=== PATIENT | female | born 1945 | race Caucasian/White ===

== ENCOUNTER → 2017-03-27 | Outpatient (CLI) | payer MEDICARE, BC ==
[2017-03-27 15:29] LABS: ALBUMIN 3.5 gm/dL (3.5-5.0); ANION GAP 10.8 (10.0-19.0); CALCIUM 10.5 mg/dL (8.5-10.5); CREATININE 1.6 mg/dL (0.5-1.1); PHOSPHORUS 2.1 mg/dL (2.5-4.9)
[2017-03-27 15:30] LABS: POTASSIUM 4.8 mMol/L (3.7-5.1)
== END | disposition disaster alternative care site (69) ==
LOC: LCNC 15:17
PROVIDERS: Internal Medicine Interventional Cardiology
DX: Z79.01 Long term (current) use of anticoagulants (principal)

== ENCOUNTER → 2017-04-10 | Outpatient (CLI) | payer MEDICARE, BC | LOC: LKCL 16:43 | DX: E83.52 Hypercalcemia (principal); N18.3 Chronic kidney disease, stage 3 (moderate); R53.1 Weakness ==

== ENCOUNTER 2017-04-22 02:27 | Emergency (ER) | payer MEDICARE, BC ==
--- NOTE | ~2017-04-22 | ER ---
PATIENT'S NAME: PRATIK GIFFORD [facility] AGE: 71 Y [address] ROOM: [place], [place] [address] LOCATION: [facility] ADMIT DATE: 04/22/2017 ER/Outpatient Report DISCHARGE DATE: 04/22/2017 FAMILY PHYSICIAN: Abhilash Saucedo MD ATTENDING PHYSICIAN: Russell Vazquez Admission date and time documented in the medical record. I saw the patient at 0240 hours. CHIEF COMPLAINT: Fall out of bed with right shoulder pain. HISTORY OF PRESENT ILLNESS: The patient is a 71-year-old female, who just prior to admission in the emergency room fell out of bed injuring her right shoulder. Brought to the emergency room by paramedics via ambulance for evaluation. On arrival, the patient was awake, alert, responsive. Complains of right shoulder pain. Denies hitting her head or having head pain. No neck or spine pain. No chest pain or shortness of breath. No abdominal pain, nausea, vomiting, or incontinence of stool or urine. No other joint or muscle swelling, redness, or pain other than the right shoulder. No skin eruptions or rash. No history of psych issues, endocrine problems, or neuro changes. HOME MEDICATIONS: See attached medication list. ALLERGIES: NONE. SOCIAL HISTORY: Nonsmoker. Occasional intake of alcohol. SIGNIFICANT PAST MEDICAL HISTORY: Atherosclerotic ischemic heart disease with coronary artery disease, hypertension, benign ovarian fibroma, endometriosis, dyslipidemia, obesity, nonischemic cardiomyopathy, chronic anticoagulation with Plavix, obstructive sleep apnea. OPERATIONS: Bladder suspension, hysterectomy, cholecystectomy, tonsillectomy, exploratory laparotomy with resection of pelvic mass, appendectomy, cardiac catheterization, AICD placement. REVIEW OF SYSTEMS: All systems reviewed by me are negative with the exception of those discussed PATIENT'S NAME: PRATIK GIFFORD [facility] AGE: 71 Y [address] ROOM: [place], [place] [address] LOCATION: [facility] ADMIT DATE: 04/22/2017 ER/Outpatient Report DISCHARGE DATE: 04/22/2017 FAMILY PHYSICIAN: Abhilash Saucedo MD ATTENDING PHYSICIAN: Russell Vazquez in the history of the present illness. PHYSICAL EXAMINATION: VITAL SIGNS: Temperature 98.7 tympanic, pulse 60, respirations 18, blood pressure 176/73, O2 sat on room air is 99%. HEAD: Normocephalic. EYES, EARS, NOSE, THROAT: Clear. NECK: No nuchal rigidity. No thyromegaly or cervical adenopathy. No tenderness. SPINE: Nontender. No deformity. LUNGS: Clear. Good air flow. No rales, rhonchi, or wheezes. HEART: Regular. Pulses are palpable. ABDOMEN: Soft, nondistended, nontender. Good bowel tones. No organomegaly or abnormal mass palpable. PELVIS: Stable, nontender. EXTREMITIES: The patient has deformity of the right shoulder with tenderness. No other joint abnormalities. NEUROVASCULAR: Intact. Pulse intact. Capillary refill was intact. SKIN: Clear. LABORATORY DATA AND X-RAYS: X-ray of the right shoulder shows a dislocation of the right shoulder. We will review x-ray with the radiologist. EMERGENCY DEPARTMENT COURSE: Did start an IV. Gave the patient 25 mcg of fentanyl IV in the emergency room for pain. We did call Anesthesia to do conscious sedation with propofol for closed reduction of the right shoulder dislocation. Did have the patient sign an op permit for closed reduction of right dislocated shoulder. We did start the patient on some fluids. Gave her propofol for conscious sedation. Reduced the right shoulder dislocation. The patient did have some decrease in her O2 sats. We did bag the patient for a brief period of time. The patient woke up and did fine. Repeat x-ray following closed reduction showed successful reduction of right shoulder dislocation. We will review all plain films with the radiologist. IMPRESSION: Fall out of bed with dislocated right shoulder. Closed reduction under conscious sedation using propofol was performed successfully in reducing the right shoulder dislocation. PLAN: The patient was placed in a right shoulder immobilizer. Discharged from the emergency room home. Continue present home medications and care. Ice to shoulder intermittently if needed. Follow up with personal physician or PATIENT'S NAME: PRATIK GIFFORD [facility] AGE: 71 Y [address] ROOM: [place], [place] [address] LOCATION: [facility] ADMIT DATE: 04/22/2017 ER/Outpatient Report DISCHARGE DATE: 04/22/2017 FAMILY PHYSICIAN: Abhilash Saucedo MD ATTENDING PHYSICIAN: Russell Vazquez orthopedic surgeon in 7-10 days for followup exam. Discussion ensued with the patient and her regarding my findings and recommendations, they understand. MD FATMATA ROSALES/sylvester /[id number] d: 04/22/17 0430 t: 05/02/17 1817, OUTPATIENT REPORT
== END 2017-04-22 04:10 | disposition disaster alternative care site (69) ==
LOC: GACC 02:27
PROC: 0RSJXZZ Reposition Right Shoulder Joint, External Approach (ICD-10-PCS; principal; 2017-04-22)
DX: S43.034A Inferior dislocation of right humerus, initial encounter (principal); I25.10 Atherosclerotic heart disease of native coronary artery without angina pectoris; I10 Essential (primary) hypertension; E78.5 Hyperlipidemia, unspecified; E66.9 Obesity, unspecified; R79.1 Abnormal coagulation profile; G47.33 Obstructive sleep apnea (adult) (pediatric); Z90.710 Acquired absence of both cervix and uterus; Z90.49 Acquired absence of other specified parts of digestive tract; Z90.89 Acquired absence of other organs; Z95.828 Presence of other vascular implants and grafts; Z95.810 Presence of automatic (implantable) cardiac defibrillator; W06.XXXA Fall from bed, initial encounter
CPT/HCPCS: J3010; J7030

== ENCOUNTER → 2017-04-22 | Outpatient (CLI) | payer MEDICARE, BC | END | disposition disaster alternative care site (69) | LOC: GAMB 02:08 | DX: S49.91XA Unspecified injury of right shoulder and upper arm, initial encounter (principal); M79.601 Pain in right arm; W06.XXXA Fall from bed, initial encounter | CPT/HCPCS: A0425; A0429 ==